=== PATIENT | male | born 1995 | race Caucasian/White ===

== ENCOUNTER 2019-04-11 18:14 | Emergency (ER) | payer OTHER ==
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
[2019-04-11 19:45] LABS: BLOOD UREA NITROGEN,BUN 11 mg/dL (7.0-18.0); CARBON DIOXIDE,CO2 29.5 mmol/L (21.0-32.0); CHLORIDE,CL 105 mmol/L (98-107); GLUCOSE RANDOM 126 mg/dL (74-106); POTASSIUM,K 4.1 mmol/L (3.5-5.1); SODIUM,NA 142 mmol/L (136-148)
--- NOTE | 2019-04-11 19:48 | CT ---
INDICATION: Memory loss TECHNIQUE: CT head without contrast. COMPARISON: None FINDINGS: CSF spaces: Within normal limits for age. Brain parenchyma: The bowman-white differentiation is normal. No sign of mass, hemorrhage, or midline shift. Skull base and calvarium: Mucosal thickening in the bilateral maxillary sinuses. The mastoid air cells demonstrate no acute or significant findings. The visualized orbits are grossly unremarkable. No skull fractures. IMPRESSION: No acute intracranial abnormality. Please note that all CT scans at this facility use dose modulation, iterative reconstruction, and/or weight-based dosing when appropriate to reduce radiation dose to as low as reasonably achievable. Dictated by Vera Parsons MD @ Apr 11 2019 7:47PM Signed by Dr. Vera Parsons @ Apr 11 2019 7:47PM
== END 2019-04-11 21:06 | disposition home or self-care (01) ==
LOC: MW.ED 18:14
DX: R44.1 Visual hallucinations (principal); R44.0 Auditory hallucinations
CPT/HCPCS: 36415; 70450; 70450-26; 80053; 80305-QW; 81003; 85025; 99285-25